=== PATIENT | male | born 1940 | race African-American/Black ===

== ENCOUNTER 2016-10-04 07:26 | Emergency (ER) | payer MEDICARE ==
--- NOTE | 2016-10-04 07:50 | PHYS DOC ---
Past Medical History Past Medical History: Diabetes-Type II Additional Past Medical Histor: Parkinson's disease Additional Information: non-smoker Alcohol Use: None Drug Use: None Adult General Chief Complaint Chief Complaint: SYNCOPE HPI HPI Patient is a 76 year old male with history of diabetes, hypertension, and Parkinson's disease who presents after a syncopal episode this morning. He states that he got up to go to the bathroom to urinate. His found him sitting on the toilet, unresponsive. She called EMS. Upon EMS arrival, the patient was still unresponsive with GCS of 3 and systolic blood pressure in the 40s. En route to the hospital, the patient became more responsive and had GCS of 15 upon arrival to the emergency department. The patient does not recall the episode. He denies feeling dizzy or lightheaded. He does not have chest pain, shortness of breath, weakness or numbness. He did not fall or sustain any injury. Patient's reports that he has had a history of hypotension. His neurologist has recommended that he have his blood pressure medication dosage re -evaluated. His PCP is at [facility]. Review of Systems Review of Systems Constitutional: Denies fever or chills. [] Eyes: Denies change in visual acuity, redness, or eye pain. [] HENT: Denies ear pain, nasal congestion or sore throat. [] Respiratory: Denies cough or shortness of breath. [] Cardiovascular: Denies chest pain, palpitations or edema. [] GI: Denies abdominal pain, nausea, vomiting, bloody stools or diarrhea. [] : Denies dysuria, hematuria or urinary frequency. [] Musculoskeletal: Denies back pain or joint pain. [] Integument: Denies rash or skin lesions. [] Neurologic: Denies headache, focal weakness or sensory changes. Denies dizziness. Reports syncope. Endocrine: Denies polyuria or polydipsia. [] Psych: Denies anxiety or depression. [] All systems reviewed and negative unless otherwise stated in the HPI. Allergies Allergies Allergies Coded Allergies Type Severity Reaction Last Updated Verified No Known Drug Allergies 10/04/16 No Physical Exam Physical Exam Constitutional: Well developed, well nourished, no acute distress, non-toxic appearance. [] HENT: Normocephalic, atraumatic, oropharynx moist. [] Eyes: PERRLA, EOMI, conjunctiva normal, no discharge. [] Neck: Normal range of motion, no tenderness, supple, no stridor. [] Cardiovascular: Heart rate regular rhythm, no murmur. [] Lungs & Thorax: Bilateral breath sounds clear to auscultation without wheezes, rales, or rhonchi. [] Abdomen: Bowel sounds normal, soft, no tenderness, no masses, no pulsatile masses. [] Skin: Warm, dry, no erythema, no rash. [] Back: No midline tenderness, no CVA tenderness. [] Extremities: No tenderness, ROM intact, no edema. Distal pulses equal bilaterally. [] Neurologic: Alert and oriented X 3, normal motor function, normal sensory function, no focal deficits noted. CN II-XII grossly intact. Cerebellar function normal on heel-wynn testing. Psychologic: Affect normal, judgement normal, mood normal. [] Current Patient Data Vital Signs Vital Signs Date Time Temp Pulse Resp B/P Pulse Ox O2 Delivery O2 Flow Rate FiO2 10/04/16 10:18 84 154/72 99 10/04/16 08:09 97.0 12 Room Air 97.0 Lab Values Laboratory Tests Test 10/04/16 07:45 10/04/16 08:05 White Blood Count 4.6x10^3/uL (4.0-11.0) Red Blood Count 4.21x10^6/uL (4.30-5.70) L Hemoglobin 13.0g/dL (13.0-17.5) Hematocrit 39.4% (39.0-53.0) Mean Corpuscular Volume 93fL (79-100) Mean Corpuscular Hemoglobin 31pg (25-35) Mean Corpuscular Hemoglobin Concent 33g/dL (31-37) Red Cell Distribution Width 14.1% (11.5-14.5) Platelet Count 194x10^3/uL (140-400) Neutrophils (%) (Auto) 35% (31-73) Lymphocytes (%) (Auto) 56% (24-48) H Monocytes (%) (Auto) 7% (0-9) Eosinophils (%) (Auto) 2% (0-3) Basophils (%) (Auto) 1% (0-3) Neutrophils # (Auto) 1.6x10^3uL (1.8-7.7) L Lymphocytes # (Auto) 2.6x10^3/uL (1.0-4.8) Monocytes # (Auto) 0.3x10^3/uL (0.0-1.1) Eosinophils # (Auto) 0.1x10^3/uL (0.0-0.7) Basophils # (Auto) 0.0x10^3/uL (0.0-0.2) Prothrombin Time 12.5SEC (11.7-14.0) Prothrombin Time INR 1.0 (0.8-1.1) Sodium Level 143mmol/L (136-145) Potassium Level 4.5mmol/L (3.5-5.1) Chloride Level 105mmol/L (98-107) Carbon Dioxide Level 32mmol/L (21-32) Anion Gap 6 (6-14) Blood Urea Nitrogen 28mg/dL (8-26) H Creatinine 1.3mg/dL (0.7-1.3) Estimated GFR (Cockcroft-Gault) 65.3 BUN/Creatinine Ratio 22 (6-20) H Glucose Level 103mg/dL (70-99) H Calcium Level 9.6mg/dL (8.5-10.1) Magnesium Level 1.9mg/dL (1.8-2.4) Total Bilirubin 0.3mg/dL (0.2-1.0) Aspartate Amino Transferase (AST) 17U/L (15-37) Alanine Aminotransferase (ALT) 10U/L (16-63) L Alkaline Phosphatase 72U/L (46-116) Troponin I Quantitative < 0.017ng/mL (0.000-0.055) LR-Dpz-G-Type Natriuretic Peptide 29pg/mL (0-124) Total Protein 7.5g/dL (6.4-8.2) Albumin 3.8g/dL (3.4-5.0) Albumin/Globulin Ratio 1.0 (1.0-1.7) Urine Collection Type Unknown Urine Color Yellow Urine Clarity Clear Urine pH 7.5 Urine Specific [place] 1.010 Urine Protein Negativemg/dL (NEG-TRACE) Urine Glucose (UA) Negativemg/dL (NEG) Urine Ketones (Stick) Negativemg/dL (NEG) Urine Blood Negative (NEG) Urine Nitrite Negative (NEG) Urine Bilirubin Negative (NEG) Urine Urobilinogen Dipstick 0.2mg/dL (0.2 mg/dL) Urine Leukocyte Esterase Negative (NEG) Urine RBC 1-2/HPF (0-2) Urine WBC Rare/HPF (0-4) Urine Squamous Epithelial Cells Occ/LPF Urine Bacteria Few/HPF (0-FEW) Urine Hyaline Casts Few/HPF Laboratory Tests 10/04/16 07:45 Laboratory Tests 10/04/16 07:45 EKG EKG EKG at 0737. Heart rate 87 bpm. Sinus rhythm without any acute ischemic changes or STEMI, as interpreted by Dr. Rivera. Radiology/Procedures Radiology/Procedures REASON: syncope PROCEDURE: HEAD WO CONTRAST Indication: Syncope. Axial imaging through the brain was performed without contrast. The ventricles and sulci are consistent with the patient's age. Moderate periventricular hypodensity is noted consistent with chronic microvascular ischemia. No sulcal effacement is identified. There is no midline shift. No acute intra-axial or extra-axial hemorrhage is identified. The cisterns are patent. There is some mild mucosal thickening of the ethmoid air cells. Impression: Changes of chronic microvascular ischemia. No acute intracranial process is detected. REASON: syncope RM21 PROCEDURE: PORTABLE CHEST 1V Indication: Syncope. Time of exam 0750 hours. FINDINGS: The heart size is normal. The lungs are clear. No pleural effusion or pneumothorax is identified. The pulmonary vascularity is normal. IMPRESSION: No acute abnormality detected. Course & Med Decision Making Course & Med Decision Making Pertinent Labs and Imaging studies reviewed. (See chart for details) Patient is a 76-year-old male who presents after syncopal episode at home. He was found by his , unresponsive, but was alert and oriented upon arrival to the emergency department. His vital signs are stable. He denies any complaints. Examination is unremarkable without any neurologic deficits. EKG does not show any ischemic changes. CT of the head does not show any acute changes. Chest x- ray is unremarkable. There are no significant laboratory abnormalities, including a normal troponin and BNP. Patient has a history of orthostatic hypotension. He likely had a vasovagal event. I discussed results with patient and his family and offered hospital admission. The patient and family request to be discharged home. The patient is instructed to follow closely with his primary care provider and have outpatient carotid Doppler performed. Strict return precautions were discussed. The patient and family verbalized understanding and agree with plan. Patient course was discussed with Dr. Rivera , who agrees with assessment and plan. Dragon Disclaimer Dragon Disclaimer This electronic medical record was generated, in whole or in part, using a voice recognition dictation system. Departure Departure Impression: Primary Impression: Syncope Disposition: 01 HOME, SELF-CARE Condition: STABLE Referrals: ARVIN ELLIOTT MD (PCP) Patient Instructions: Syncope, [id number] Additional Instructions: You were seen for syncope, or passing out. This likely happened because of a common occurrence while sitting on the toilet. Your tests today did not show any concerning findings. Please call your doctor today to schedule a follow up appointment. You will need to have an ultrasound (or Doppler) of the carotid arteries in the neck. Return to the emergency department if you have any chest pain, shortness of breath, headache, weakness or numbness, dizziness, or other new or concerning symptoms. Problem Qualifiers Primary Impression: Syncope Syncope type: vasovagal syncope Qualified Code: R55 - Syncope and collapse FRANCOIS GARCIA Oct 04, 2016 07:50
--- NOTE | 2016-10-04 08:12 | RAD ---
Indication: Syncope. Time of exam 0750 hours. FINDINGS: The heart size is normal. The lungs are clear. No pleural effusion or pneumothorax is identified. The pulmonary vascularity is normal. IMPRESSION: No acute abnormality detected.
[2016-10-04 08:22] LABS: BASO % 1 % (0-3); EOS % 2 % (0-3); HEMATOCRIT 39.4 % (39.0-53.0); LYMPH # 2.6 x10^3/uL (1.0-4.8); LYMPH % 56 % (24-48); MEAN CORPUSCULAR HEMOGLOBIN 31 pg (25-35); MEAN CORPUSCULAR HGB CONC 33 g/dL (31-37); MEAN CORPUSCULAR VOLUME 93 fL (79-100); MONO % 7 % (0-9); NEUT % 35 % (31-73); PLATELET COUNT 194 x10^3/uL (140-400); RED BLOOD COUNT 4.21 x10^6/uL (4.30-5.70); RED CELL DISTRIBUTION WIDTH 14.1 % (11.5-14.5); WHITE BLOOD COUNT 4.6 x10^3/uL (4.0-11.0)
[2016-10-04 08:25] LABS: BILIRUBIN,URINE NEGATIVE (NEG); GLUCOSE,URINE NEGATIVE (NEG); NITRITE,URINE NEGATIVE (NEG); PH,URINE 7.5; PROTEIN,URINE NEGATIVE (NEG-TRACE); UROBILINOGEN,URINE 0.2 mg/dL (0.2 mg/dL)
[2016-10-04 08:26] LABS: CALCIUM 9.6 mg/dL (8.5-10.1); CREATININE 1.3 mg/dL (0.7-1.3); GFR 65.3; POTASSIUM 4.5 mmol/L (3.5-5.1)
--- NOTE | 2016-10-04 08:33 | EKG ---
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
--- NOTE | 2016-10-04 08:39 | RAD ---
Indication: Syncope. Axial imaging through the brain was performed without contrast. The ventricles and sulci are consistent with the patient's age. Moderate periventricular hypodensity is noted consistent with chronic microvascular ischemia. No sulcal effacement is identified. There is no midline shift. No acute intra-axial or extra-axial hemorrhage is identified. The cisterns are patent. There is some mild mucosal thickening of the ethmoid air cells. Impression: Changes of chronic microvascular ischemia. No acute intracranial process is detected. PQRS Compliance Statement: One or more of the following individualized dose reduction techniques were utilized for this examination: 1. Automated exposure control 2. Adjustment of the mA and/or kV according to patient size 3. Use of iterative reconstruction technique
[2016-10-04 08:43] LABS: ALBUMIN 3.8 g/dL (3.4-5.0); MAGNESIUM 1.9 mg/dL (1.8-2.4); PROTHROMBIN TIME PATIENT 12.5 SEC (11.7-14.0); TOTAL BILIRUBIN 0.3 mg/dL (0.2-1.0); TOTAL PROTEIN 7.5 g/dL (6.4-8.2)
[2016-10-04 08:52] LABS: BACTERIA,URINE FEW /HPF (0-FEW); SQUAMOUS EPITHELIAL CELL,UR OCC /LPF; WBC,URINE RARE /HPF (0-4)
[2016-10-04 10:18] VITALS: BP 154/72
== END 2016-10-04 10:30 | disposition home or self-care (01) ==
LOC: ER 07:26
DX: R55 Syncope and collapse (principal); E11.9 Type 2 diabetes mellitus without complications; I10 Essential (primary) hypertension; G20 Parkinson's disease
CPT/HCPCS: 36415; 70450; 71010; 80053; 81001; 83735; 83880; 84484; 85027; 85610; 93005; 99285-25